=== PATIENT | female | born 1960 | race Caucasian/White ===

== ENCOUNTER 2018-08-05 15:52 | Emergency (ER) | payer OTHER ==
[2018-08-05 16:10] VITALS: BP 117/79; PULSE 84; RESP 18; TEMP 99.1
[2018-08-05] MEDS ORDERED: diphenhydrAMINE 50 MG/ML 1 ML VIAL IM STA (16:24)
[2018-08-05] MEDS ORDERED: METOCLOPRAMIDE 5 MG/ML 2 ML VIAL IM STA (16:24)
--- NOTE | 2018-08-05 16:37 | ED ---
General Adult HPI - General Chief complaint: Headache Stated complaint: Headache Time Seen by Provider: 08/05/18 16:17 Source: patient, RN notes reviewed Mode of arrival: ambulatory Limitations: no limitations - History of Present Illness Initial comments: Patient is a pleasant 57-year-old female presenting to the emergency Department with complaints of headache. Onset of symptoms was around 3 days ago. Gradual headache. Headache has progressively worsened and has certainly become severe. Patient does have history of chronic similar headaches. Patient does have history of aneurysm however that has been ordered with a coil. Patient denies any neurological problems. Patient has had some nausea and did vomit. No fevers. Patient has had sinus congestion and cough for the past several days. Patient does have sinus drainage with occasional yellow or clear drainage. Patient states she went to a different hospital recently and was told her symptoms are viral. Patient states normally she would take Imitrex for headaches similar to this however has run out. Headache is bilateral temporal region and somewhat posterior. This is normally wear her headaches do affect her. - Related Data Previous Rx's Medication Instructions Recorded Amoxicillin 500 mg PO Q8H #30 capsule 08/05/18 Allergies Allergy/AdvReac Type Severity Reaction Status Date / Time No Known Allergies Allergy Verified 08/05/18 16:05 Review of Systems ROS Statement: Those systems with pertinent positive or pertinent negative responses have been documented in the HPI. ROS Other: All systems not noted in ROS Statement are negative. Constitutional: Denies: fever Eyes: Denies: eye pain ENT: Reports: congestion. Denies: ear pain Respiratory: Reports: cough. Denies: dyspnea Cardiovascular: Denies: chest pain Endocrine: Reports: fatigue Gastrointestinal: Reports: nausea. Denies: abdominal pain Genitourinary: Denies: dysuria Musculoskeletal: Denies: back pain Skin: Denies: rash Neurological: Reports: headache. Denies: weakness, confusion Past Medical History Additional Past Medical History / Comment(s): migraines History of Any Multi-Drug Resistant Organisms: None Reported Additional Past Surgical History / Comment(s): brain aneurysm with coil placement Past Psychological History: Anxiety Smoking Status: Former smoker Past Alcohol Use History: None Reported Past Drug Use History: None Reported General Exam Limitations: no limitations General appearance: alert, in no apparent distress Head exam: Present: atraumatic Eye exam: Present: normal appearance, PERRL, EOMI. Absent: nystagmus ENT exam: Present: normal oropharynx Neck exam: Present: normal inspection. Absent: tenderness, meningismus Respiratory exam: Present: normal lung sounds bilaterally Cardiovascular Exam: Present: regular rate, normal rhythm GI/Abdominal exam: Present: soft. Absent: tenderness Extremities exam: Present: normal inspection Neurological exam: Present: alert, oriented X3, CN II-XII intact. Absent: motor sensory deficit Expanded Neurological exam: Present: protecting the airway Patient oriented to: Present: person, place, time Speech: Present: fluid speech Cranial nerves: EOM's Intact: Normal, Facial Sensation: Normal Sensory exam: Upper Extremity Light Touch: Normal, Lower Extremity Light Touch: Normal Motor strength exam: RUE: 5, LUE: 5, RLE: 5, LLE: 5 Eye Response: (4) open spontaneously Motor Response: (6) obeys commands Verbal Response: (5) oriented Psychiatric exam: Present: normal affect, normal mood Skin exam: Present: normal color Course Vital Signs 08/05/18 16:06 Temperature 99.1 F Pulse Rate 84 Respiratory 18 Rate Blood Pressure 117/79 O2 Sat by Pulse 96 Oximetry Disposition Clinical Impression: Cephalgia, Sinusitis Disposition: HOME SELF-CARE Condition: Stable Instructions (If sedation given, give patient instructions): Acute Headache (ED) Additional Instructions: Please follow-up with primary care physician tomorrow. Return for fevers, weakness, confusion, persistent vomiting, worsening symptoms or other concerns. [id number] saline nasal spray 4 times daily. Prescriptions: Amoxicillin 500 mg PO Q8H #30 capsule Is patient prescribed a controlled substance at d/c from ED?: No Referrals: Ramone Lopez MD [Primary Care Provider] - 1-2 days Time of Disposition: 16:29
== END 2018-08-05 16:59 | disposition home or self-care (01) ==
LOC: EC 15:52
DX: J32.9 Chronic sinusitis, unspecified (principal); Z87.891 Personal history of nicotine dependence
CPT/HCPCS: 99283; 96372 ×2; J1200; J2765

== ENCOUNTER 2019-08-28 06:35 | Observation (INO) | payer OTHER ==
--- NOTE | 2019-08-28 06:40 | ED ---
Dizziness HPI - General Stated Complaint: Neuro consult Time Seen by Provider: 08/28/19 06:36 Source: RN notes reviewed, old records reviewed Limitations: no limitations - History of Present Illness Initial Comments: This is a 58-year-old female DF for evaluation patient Dese for evaluation of dizziness patient was presented to our facility from another facility with her evaluated concern for dizziness and need for neurology evaluation. Patient states symptoms are most mildly improved here in the ER she had symptoms numbness until going of the extremities that has resolved. No current headache. Has of history of aneurysm with coiling procedure. No nausea vomiting currently. MD Complaint: dizziness -: hour(s) Timing: gradual onset, intermittent Description: lightheadedness History of Same: Yes History of Trauma: No Severity: mild Improves With: remaining still Worsens With: movement Associated Symptoms: denies other symptoms - Related Data Previous Rx's Medication Instructions Recorded Amoxicillin 500 mg PO Q8H #30 capsule 08/05/18 Allergies Allergy/AdvReac Type Severity Reaction Status Date / Time No Known Allergies Allergy Verified 08/05/18 16:05 Review of Systems ROS Statement: Those systems with pertinent positive or pertinent negative responses have been documented in the HPI. ROS Other: All systems not noted in ROS Statement are negative. Past Medical History Additional Past Medical History / Comment(s): migraines History of Any Multi-Drug Resistant Organisms: None Reported Additional Past Surgical History / Comment(s): brain aneurysm with coil placement Past Psychological History: Anxiety Smoking Status: Former smoker Past Alcohol Use History: None Reported Past Drug Use History: None Reported General Exam - General Exam Comments Initial Comments: NIH of 0 General appearance: alert, in no apparent distress Head exam: Present: atraumatic, normocephalic, normal inspection Eye exam: Present: normal appearance, PERRL, EOMI. Absent: scleral icterus, conjunctival injection, periorbital swelling ENT exam: Present: normal exam, mucous membranes moist Neck exam: Present: normal inspection. Absent: tenderness, meningismus, lymphadenopathy Respiratory exam: Present: normal lung sounds bilaterally. Absent: respiratory distress, wheezes, rales, rhonchi, stridor Cardiovascular Exam: Present: regular rate, normal rhythm, normal heart sounds. Absent: systolic murmur, diastolic murmur, rubs, gallop, clicks GI/Abdominal exam: Present: soft, normal bowel sounds. Absent: distended, tenderness, guarding, rebound, rigid Extremities exam: Present: normal inspection, full ROM, normal capillary refill. Absent: tenderness, pedal edema, joint swelling, calf tenderness Back exam: Present: normal inspection Neurological exam: Present: alert, oriented X3, CN II-XII intact Psychiatric exam: Present: normal affect, normal mood Skin exam: Present: warm, dry, intact, normal color. Absent: rash Course - Reevaluation(s) Reevaluation #1: 08/28/19 06:39 Medical records reviewed Reevaluation #2: 08/28/19 06:39 Transfer paperwork is reviewed and did speak with transferring physician regard ing patient - Consultations Consultation #1: Spoke with Dr. Sepulveda agrees to admit the patient Medical Decision Making - Medical Decision Making 58 female DF for evaluation of dizziness patient is accepted in transfer at a hospital for neurology consult evaluation Disposition Clinical Impression: Dizziness, Paresthesia Disposition: ADMITTED IP TO THIS HOSP Condition: Good Is patient prescribed a controlled substance at d/c from ED?: No Referrals: Ramone Lopez MD [Primary Care Provider] - 1-2 days
[2019-08-28] MEDS: SODIUM CHLORIDE 0.9% 1,000 ML IV SCH ×2 (06:55→16:42)
[2019-08-28] MEDS ORDERED: ONDANSETRON 4 MG/2 ML VIAL IVP STA (07:18)
[2019-08-28] MEDS ORDERED: MORPHINE SULFATE 4 MG/ML SYRINGE IVP STA (07:18)
[2019-08-28] MEDS: ENOXAPARIN 40 MG/0.4 ML SYRINGE SQ SCH (11:34)
[2019-08-28] MEDS: PROPRANOLOL 40 MG TAB PO SCH ×2 (12:12→20:13)
[2019-08-28] MEDS: MODAFINIL 200 MG TAB PO SCH (12:21)
[2019-08-28] MEDS: MECLIZINE 12.5 MG TAB PO SCH ×4 (13:00→20:13)
--- NOTE | 2019-08-28 15:58 | P.CNNES ---
History of Present Illness Consult date: 08/28/19 Requesting physician: Harshad Porter Reason for Consult: Dizziness History of Present Illness: Patient is a 58-year-old female admitted for evaluation of dizziness. Patient states that last night she went to sleep. Got up an hour later to pass urine. As she stood up, she got dizzy, has 2 hold onto the bethea. She went to the bathroom, felt nauseous, dizzy, off balance. Her head was foggy, like a tunnel. She couldn't stand or walk. She felt will lose balance. Did not vomit. There was no associated numbness tingling or focal weakness. No slurred speech or droopy face or loss of vision. She went to [facility]. Patient underwent testing as below. Her symptoms lasted for an hour, and then resolved. At present she has no symptoms. Patient states that about couple weeks ago, she was standing In the hallway when she felt dizzy, sat down symptoms passed in 15 minutes. Along with that she also had numbness of the left lower jaw region, that lasted for 15 minutes and slowly went away. Besides these 2, she has never had any episodes of dizziness. Patient denies any slurred speech, facial droop, diplopia, tinnitus. Couple days ago she did have some ear ache on the right side. She does not get dizzy when she rolls over in the bed. Patient's work up at [facility] showed had a normal UA, CMP with AST mildly elevated 71/36, ALT 85/59. Renal panel and electrolytes normal. Troponin negative. TSH 2.221. ProBNP 73 which is normal. Blood alcohol level negative. PT/PTT normal. CBC normal. Glucose 83. EKG showed normal sinus rhythm CTA of the chest with and without contrast showed some mild linear density at the lung bases consistent with subsegmental atelectasis. No pleural effusion. Heart is slightly enlarged. No pericardial effusion. No hilar masses. CT of the head showed dense metal artifact from surgical clips at the anterior [place]. There is no mass effect or midline shift. There is no signs of intracranial hemorrhage. I reviewed computed tomography scan of the head on the computer as well. External auditory canal appears clear. Ethmoid sinuses appear slightly congested. Sphenoid and maxillary sinuses were not visible on the CAT scan. Chest x-ray showed heart and mediastinum are normal. Lungs are clear. Patient has history of hypertension. Denies diabetes. Patient has been a light smoker, smoked 2 packs per month for last 10 years. Lately she has been smoking 1 pack per month. Denies any alcohol. She does not take any antiplatelet medications or aspirins. Patient states that 6 years ago she underwent MRI of the brain for evaluation of headache and was diagnosed with 5 mm aneurysm. While it was being coiled, she states that it did rupture, but fortunately she has no deficits from it. No family history of aneurysms. Review of Systems As mentioned above in detail. All other review of systems completely unremarkable. Past Medical History Past Medical History: No Reported History Additional Past Medical History / Comment(s): migraines History of Any Multi-Drug Resistant Organisms: None Reported Past Surgical History: Section Additional Past Surgical History / Comment(s): brain aneurysm with coil placement Past Anesthesia/Blood Transfusion Reactions: No Reported Reaction Past Psychological History: Anxiety Smoking Status: Current every day smoker Past Alcohol Use History: None Reported Past Drug Use History: None Reported Medications and Allergies Home Medications Medication Instructions Recorded Confirmed Type Modafinil [Provigil] 200 mg PO DAILY 08/28/19 08/28/19 History Propranolol [Inderal] 40 mg PO BID 08/28/19 08/28/19 History SUMAtriptan SUCCINATE [Imitrex] 100 mg PO BID PRN 08/28/19 08/28/19 History Meclizine [Antivert] 12.5 mg PO QID PRN #12 tab 08/29/19 Rx Allergies Allergy/AdvReac Type Severity Reaction Status Date / Time No Known Allergies Allergy Verified 08/28/19 07:12 Physical Examination - Vital Signs Vital Signs: Vital Signs Temp Pulse Pulse Resp BP BP Pulse Ox 08/28/19 11:55 97.5 F L 65 16 138/74 95 08/28/19 09:11 98.2 F 60 16 112/70 94 L 08/28/19 08:56 98.2 F 60 16 112/70 94 L 08/28/19 08:05 98.5 F 67 18 132/82 94 L 08/28/19 07:25 60 18 144/80 96 08/28/19 06:37 98.5 F 61 16 137/78 96 Intake and Output 08/27/19 08/28/19 08/28/19 22:59 06:59 14:59 Intake Total 200 Balance 200 Intake: Intake, IV Titration 200 Amount Sodium Chloride 0.9% 1, 200 000 ml @ 100 mls/hr IV . Q10H [facility] Rx#:[id number] Other: Weight 60.781 kg 60.781 kg On examination patient is a middle aged female, in no distress. Patient is alert and awake oriented to time place and person. Speech and language functions are normal. Attention and concentration, fund of knowledge is adequate. On cranial examination pupils are round and reactive to light, vis ual carey are full, extraocular muscles are intact with no nystagmus. Face is symmetric, tongue protrudes to the midline. Hearing is intact. Palatal elevation and sensation normal. Shoulder shrug normal. On muscle strength testing there is no pronator drift and the strength is normal in arms and legs distally and proximally. Deep tendon reflexes are 1+ and plantars are downgoing. Sensory touch is equal. No ataxia for [id number] testing. Tone and bulk of muscles normal. Her gait is normal. No obvious bruit, S1 and S2 audible. Peripheral pulses present. Abdomen soft nontender. Chest is clear. Assessment and Plan Assessment: * 58-year-old female admitted with 2 episodes of dizziness, 2 weeks apart. First one lasted for 15 minutes associated with numbness of left lower jaw. Most recent episode lasted for an hour. Current neurological examination is nonfocal. Differential diagnosis is between vertigo due to peripheral vascular dysfunction versus TIA. * Hypertension * Light smoker. * History of cerebral aneurysm, status post coiling 6 years ago. Plan: * Patient will undergo carotid Doppler to rule out carotid stenosis. * 2-D echo to rule out embolic source. * Telemetry showing normal sinus rhythm. * Patient was recommended to start aspirin 81 mg daily for stroke prevention. * Recommend checking fasting lipid panel, hemoglobin A1c to evaluate for other vascular risk factors. * Tobacco cessation.
--- NOTE | 2019-08-28 16:03 | US ---
EXAMINATION TYPE: US carotid duplex BILAT DATE OF EXAM: 08/28/2019 COMPARISON: NONE CLINICAL HISTORY: Vertigo, possible TIA. Dizziness EXAM MEASUREMENTS: RIGHT: Peak Systolic Velocity (PSV) cm/sec ----- Right CCA: 65.1 ----- Right ICA: 92.5 ----- Right ECA: 81.2 ICA/CCA ratio: 1.4 RIGHT: End Diastole cm/sec ----- Right CCA: 28.4 ----- Right ICA: 32.2 ----- Right ECA: 13.4 LEFT: Peak Systolic Velocity (PSV) cm/sec ----- Left CCA: 77.6 ----- Left ICA: 109.9 ----- Left ECA: 59.9 ICA/CCA ratio: 1.4 LEFT: End Diastole cm/sec ----- Left CCA: 31.4 ----- Left ICA: 41.8 ----- Left ECA: 7.5 VERTEBRALS (direction of flow): Right Vertebral: Antegrade Left Vertebral: Antegrade Rhythm: Normal No elevated velocities, no significant stenosis. Waveform analysis shows no significant stenosis. IMPRESSION: No hemodynamic significant stenosis of the proximal internal carotid arteries by Doppler criteria, an indirect measurement of carotid stenosis Criteria for Assigning % of Stenosis / Diameter reduction (Estimation based on the indirect measurements of the internal carotid artery velocities (ICA PSV). 1. Normal (no stenosis)=ICA PSV < 125 cm/s: ratio < 2.0: ICA EDV<40 cm/s. 2. Less than 50% stenosis=ICA PSV < 125 cm/s: ratio < 2.0: ICA EDV<40 cm/s. 3. 50 to 69% stenosis=ICA PSV of 125 to 230 cm/s: ration 2.0 ? 4.0: ICA EDV 40-100 cm/s. 4. Greater than 70% stenosis to near occlusion= ICA PSV > 230 cm/s: ratio > 4.0: ICA EDV > 100 cm/s. 5. Near occlusion= ICA PSV velocities may be low or undetectable: variable ratio and ICA EDV. 6. Total occlusion=unable to detect flow.
[2019-08-28] MEDS: SUMAtriptan SUCCINATE 50 MG TAB PO PRN (17:07)
[2019-08-28] MEDS: ACETAMINOPHEN TAB 325 MG TAB PO PRN (20:23)
--- NOTE | 2019-08-28 21:42 | P.HPIM ---
History of Present Illness H&P Date: 08/28/19 Chief Complaint: Very dizzy History of presenting complaint: This is a very pleasant [address] Lopez. Has a history of migraines. Woke up in the early hours credible the bathroom. [place] very dizzy. Had to hold onto the wall. Also some nausea and felt flushed. Does no chest pain no pressure. No fever no chills. Denied any change in vision or any focal weakness. Symptoms did improve. Patient the brain aneurysm coiling 6 years ago. Also has history of ADHD and migraines. She is also noticed some discomfort of the right ear last for 5 days. Initially presented to [facility] but because did not have neurology service patient was transfer red here. Review of systems: GEN.: None EYES: None HEENT: As above NECK: None RESPIRATORY: None CARDIOVASCULAR: None GASTROINTESTINAL: None GENITOURINARY: None MUSCULOSKELETAL: None LYMPHATICS: None HEMATOLOGICAL: None PSYCHIATRY: None NEUROLOGICAL: As above Past medical history to include: Migraines, ADHD, brain aneurysm with:coiling 6 years ago, anxiety Social history: Smokes a pack a day over 2-3 weeks. Lives with her boyfriend. No alcohol or recreational drugs. Family history: Reviewed, noncontributory to presentation Physical examination: VITAL SIGNS: 98.5, 61, 16, 137/78, 96% on room air GENERAL: BMI 25.3, sitting up, comfortable. EYES: Pupils equal. Conjunctiva normal. HEENT: External appearance of nose and ears normal, oral cavity grossly normal. NECK: JVD not raised; masses not palpable. HEART: First and second heart sounds are normal; no edema. LUNGS: Respiratory rate normal; clear to auscultation. ABDOMEN: Soft, nontender, liver spleen not palpable, no masses palpable. PSYCH: Alert and oriented x3; mood and affect normal. NEUROLOGICAL: [Cranial nerves grossly intact; no facial asymmetry, no nystagmus, no past pointing or dysdiadochokinesia. Power and reflexes equal and symmetrical LYMPHATICS: No lymph nodes palpable in the axilla and neck Investigations done at [facility] included: Normal UA, LFTs normal, negative troponin, TSH 2.2, Alkaline level normal glucose [address] of the chest with contrast negative for PE computed tomography scan of the head showed dense metal artifact checks x-ray reported clear Assessment: -Episode of acute dizziness in the patient's had been having right ear discomfort for loss for 5 days. This could be a peripheral vestibular dysfunction cause. Rule out a central cause. -Chronic migraines -ADHD -History of cerebral aneurysm with coiling over 6 years ago Plan: Neuro checks. Neurology was consulted. Carotid Doppler was ordered. We'll start the patient on Antivert. Also put on aspirin. Lovenox for DVT prophylaxis. IV fluids. Follow with neurology. Care was discussed with the patient. Past Medical History Past Medical History: No Reported History Additional Past Medical History / Comment(s): migraines History of Any Multi-Drug Resistant Organisms: None Reported Past Surgical History: Section Additional Past Surgical History / Comment(s): brain aneurysm with coil placement Past Anesthesia/Blood Transfusion Reactions: No Reported Reaction Past Psychological History: Anxiety Smoking Status: Current every day smoker Past Alcohol Use History: None Reported Past Drug Use History: None Reported Medications and Allergies Home Medications Medication Instructions Recorded Confirmed Type Cetirizine HCl 10 mg PO DAILY PRN 08/28/19 08/28/19 History Modafinil [Provigil] 200 mg PO DAILY 08/28/19 08/28/19 History Propranolol [Inderal] 40 mg PO BID 08/28/19 08/28/19 History SUMAtriptan SUCCINATE [Imitrex] 100 mg PO BID PRN 08/28/19 08/28/19 History Allergies Allergy/AdvReac Type Severity Reaction Status Date / Time No Known Allergies Allergy Verified 08/28/19 07:12 Physical Exam Vitals: Vital Signs Temp Pulse Pulse Resp BP BP Pulse Ox 08/28/19 09:11 98.2 F 60 16 112/70 94 L 08/28/19 08:56 98.2 F 60 16 112/70 94 L 08/28/19 08:05 98.5 F 67 18 132/82 94 L 08/28/19 07:25 60 18 144/80 96 08/28/19 06:37 98.5 F 61 16 137/78 96 Intake and Output 08/27/19 08/28/19 08/28/19 22:59 06:59 14:59 Intake Total 200 Balance 200 Intake: Intake, IV Titration 200 Amount Sodium Chloride 0.9% 1, 200 000 ml @ 100 mls/hr IV . Q10H [facility] Rx#:[id number] Other: Weight 60.781 kg 60.781 kg Thrombosis Risk Factor Assmnt - Choose All That Apply Each Factor Represents 1 point: Age 41-60 years Other Risk Factors: No Thrombosis Risk Factor Assessment Total Risk Factor Score: 1 Thrombosis Risk Factor Assessment Level: Low Risk
[2019-08-29] MEDS: SODIUM CHLORIDE 0.9% 1,000 ML IV SCH (05:02)
[2019-08-29] MEDS: ACETAMINOPHEN TAB 325 MG TAB PO PRN (05:02)
[2019-08-29 05:06] VITALS: RESP 16
[2019-08-29 06:27] LABS: Cholesterol 273 mg/dL (<200); HDL Cholesterol 49 mg/dL (40-60); LDL Cholesterol,Calculated 191 mg/dL (0-99); Triglycerides 166 mg/dL (<150)
[2019-08-29 07:30] VITALS: BP 142/87; PULSE 66; TEMP 98.1
[2019-08-29] MEDS: SUMAtriptan SUCCINATE 50 MG TAB PO PRN (08:04)
[2019-08-29] MEDS ORDERED: ASPIRIN 325 MG TAB PO SCH (09:00)
[2019-08-29] MEDS: MODAFINIL 200 MG TAB PO SCH (09:25)
[2019-08-29] MEDS: ENOXAPARIN 40 MG/0.4 ML SYRINGE SQ SCH (09:25)
[2019-08-29] MEDS: PROPRANOLOL 40 MG TAB PO SCH (09:25)
[2019-08-29] MEDS: MECLIZINE 12.5 MG TAB PO SCH (09:25)
[2019-08-29] MEDS ORDERED: ATORVASTATIN 40 MG TAB PO SCH (11:30)
--- NOTE | 2019-08-29 12:31 | ECHOF ---
Referral Reason:Vertigo, possible TIA MEASUREMENTS -------- HEIGHT: 154.9 cm WEIGHT: 62.1 kg BP: 121/71 RVIDd: 2.6 cm (< 3.3) IVSd: 0.9 cm (0.6 - 1.1) LVIDd: 4.0 cm (3.9 - 5.3) LVPWd: 0.9 cm (0.6 - 1.1) IVSs: 1.3 cm LVIDs: 2.8 cm LVPWs: 1.4 cm LA Diam: 2.5 cm (2.7 - 3.8) LAESV Index (A-L): 23.28 ml/m Ao Diam: 3.1 cm (2.0 - 3.7) AV Cusp: 2.0 cm (1.5 - 2.6) MV EXCURSION: 14.056 mm (> 18.000) MV EF SLOPE: 78 mm/s (70 - 150) EPSS: 0.2 cm MV E Kobe: 1.18 m/s MV DecT: 199 ms MV A Kobe: 0.77 m/s MV E/A Ratio: 1.52 FINDINGS -------- Sinus rhythm. This was a technically good study. The left ventricular size is normal. Left ventricular wall thickness is normal. Overall left vent ricular systolic function is normal with, an EF between 60 - 65 %. The right ventricle is normal in size. Normal LA size by volume 22+/-6 ml/m2. The right atrium is normal in size. Interatrial and interventricular septum intact. The aortic valve is trileaflet and appears structurally normal. There is trace mitral regurgitation. The tricuspid valve appears structurally normal. Trace/mild (physiologic) pulmonic regurgitation. The aortic root size is normal. Normal inferior vena cava with normal inspiratory collapse consistent with estimated right atrial pre ssure of 5 mmHg. There is no pericardial effusion. CONCLUSIONS -------- 1. Sinus rhythm. 2. This was a technically good study. 3. The left ventricular size is normal. 4. Left ventricular wall thickness is normal. 5. Overall left ventricular systolic function is normal with, an EF between 60 - 65 %. 6. The right ventricle is normal in size. 7. Normal LA size by volume 22+/-6 ml/m2. 8. The right atrium is normal in size. 9. Interatrial and interventricular septum intact. 10. The aortic valve is trileaflet and appears structurally normal. 11. There is trace mitral regurgitation. 12. The tricuspid valve appears structurally normal. 13. Trace/mild (physiologic) pulmonic regurgitation. 14. The aortic root size is normal. 15. Normal inferior vena cava with normal inspiratory collapse consistent with estimated right atrial pressure of 5 mmHg. 16. There is no pericardial effusion. ORTHOPEDIC DESIGNER: Angela Pena RDCS
[2019-08-29 15:06] LABS: Hemoglobin A1C 5.7 % (4.0-6.0)
--- NOTE | 2019-08-29 20:01 | P.DS ---
Providers Date of admission: 08/28/19 06:37 Expected date of discharge: 08/29/19 Attending physician: Major Sepulveda Consults: 08/28/19 06:37 Consult Physician Routine Consulting Provider: Beth Whitmore Consult Reason/Comments: dizzy Do you want consulting provider notified?: Yes Primary care physician: Ram[facility] Course: Chief Complaint: Very dizzy History of presenting complaint: This is a very pleasant [address] Lopez. Has a history of migraines. Woke up in the early hours credible the bathroom. [place] very dizzy. Had to hold onto the wall. Also some nausea and felt flushed. Does no chest pain no pressure. No fever no chills. Denied any change in vision or any focal weakness. Symptoms did improve. Patient the brain aneurysm coiling 6 years ago. Also has history of ADHD and migraines. She is also noticed some discomfort of the right ear last for 5 days. Initially presented to [facility] but because did not have neurology service patient was transferred here. Admitted with acute vestibulitis. Responded well to Antivert. Today-feeling much better. Symptoms resolved. Consultation: Dr. Alejandro from neurology. Physical examination: VITAL SIGNS: 98.1, 66, 16, 142/87, 95% on room air GENERAL: BMI 25.3, sitting up, comfortable. EYES: Pupils equal. Conjunctiva normal. HEENT: External appearance of nose and ears normal, oral cavity grossly normal. NECK: JVD not raised; masses not palpable. HEART: First and second heart sounds are normal; no edema. LUNGS: Respiratory rate normal; clear to auscultation. ABDOMEN: Soft, nontender, liver spleen not palpable, no masses palpable. PSYCH: Alert and oriented x3; mood and affect normal. Investigations done at [facility] included: Normal UA, LFTs normal, negative troponin, TSH 2.2, Alkaline level normal glucose [address] of the chest with contrast negative for PE computed tomography scan of the head showed dense metal artifact checks x-ray reported clear 2-D echocardiogram-year 60-65% Carotid Doppler-no significant stenosis Assessment: -Episode of acute dizziness likely acute vestibulitis, POA -Chronic migraines -ADHD -History of cerebral aneurysm with coiling over 6 years ago Disposition: Home Patient Condition at Discharge: Stable Plan - Discharge Summary Discharge Rx Participant: Yes New Discharge Prescriptions: New Meclizine [Antivert] 12.5 mg PO QID PRN #12 tab PRN Reason: Vertigo Continue Propranolol [Inderal] 40 mg PO BID Modafinil [Provigil] 200 mg PO DAILY SUMAtriptan SUCCINATE [Imitrex] 100 mg PO BID PRN PRN Reason: Headache Discontinued Cetirizine HCl 10 mg PO DAILY PRN PRN Reason: Allergy Symptoms Discharge Medication List Modafinil [Provigil] 200 mg PO DAILY 08/28/19 [History] Propranolol [Inderal] 40 mg PO BID 08/28/19 [History] SUMAtriptan SUCCINATE [Imitrex] 100 mg PO BID PRN 08/28/19 [History] Meclizine [Antivert] 12.5 mg PO QID PRN #12 tab 08/29/19 [Rx] Follow up Appointment(s)/Referral(s): Ramone Lopez MD [Primary Care Provider] - 1-2 days (mondayseptember 01) Patient Instructions/Handouts: Dizziness (GEN) Activity/Diet/Wound Care/Special Instructions: dc after echo results Discharge Disposition: HOME SELF-CARE
== END 2019-08-29 13:41 | disposition home or self-care (01) ==
LOC: EC 06:35 → UNDOADMOB 06:37 → 3SCARD 06:37 → INTOOBSV 06:37 → 3SCARD 07:43 → UNDODISIN 08-29 13:41
PROVIDERS: ADMIT Hospitalist; ATTEND Hospitalist
DX: H83.09 Labyrinthitis, unspecified ear (principal); R20.2 Paresthesia of skin; I10 Essential (primary) hypertension; G43.909 Migraine, unspecified, not intractable, without status migrainosus; Z86.79 Personal history of other diseases of the circulatory system; F41.9 Anxiety disorder, unspecified; Z98.890 Other specified postprocedural states; Z11.59 Encounter for screening for other viral diseases; F90.9 Attention-deficit hyperactivity disorder, unspecified type; F17.210 Nicotine dependence, cigarettes, uncomplicated; Z79.899 Other long term (current) drug therapy
CPT/HCPCS: 96361; 96372 ×2; 96374; 96375; 99285; 93306; 97161; 97165; 80061; 83036; 87635; 93880; G0378 ×2; J2270; J2405; J1650 ×2